=== PATIENT | female | born 1975 | race Caucasian/White ===

== ENCOUNTER 2021-04-17 10:41 | Outpatient (CLI) | payer BC | END 2021-04-17 10:42 | disposition home or self-care (01) | LOC: CSHMRI 10:41 | PROVIDERS: ATTEND Neurological Surgery | DX: M47.12 Other spondylosis with myelopathy, cervical region (principal); R93.7 Abnormal findings on diagnostic imaging of other parts of musculoskeletal system; Z98.1 Arthrodesis status; Z98.890 Other specified postprocedural states | CPT/HCPCS: 72156 ==

== ENCOUNTER 2023-04-04 08:14 | Outpatient (CLI) | payer BC ==
[2023-04-04] MEDS ORDERED: Magnevist 469MG/ML 20 ML VIAL ONE (09:13)
== END 2023-04-04 08:15 | disposition home or self-care (01) ==
LOC: CSHMRI 08:14
PROVIDERS: ATTEND Neurological Surgery
DX: D33.4 Benign neoplasm of spinal cord (principal); Z98.890 Other specified postprocedural states; M47.812 Spondylosis without myelopathy or radiculopathy, cervical region; R90.89 Other abnormal findings on diagnostic imaging of central nervous system
CPT/HCPCS: 72156